=== PATIENT | female | born 1950 | race Hispanic/Latino ===

== ENCOUNTER 2024-09-04 23:33 | Emergency (ER) | payer SELFPAY ==
[~2024-09-04] VITALS: Ht 154.9 cm; Wt 89.8 kg
[2024-09-04 23:43] VITALS: TEMP 98.7
[2024-09-05] MEDS: TRAMADOL HCL 50 MG TAB PO ONE (01:25)
[2024-09-05] MEDS: ONDANSETRON HCL 4 MG ORAL DISINTEGRATING TAB PO ONE (01:25)
[2024-09-05] MEDS ORDERED: ONDANSETRON ODT4 MG SL (04:00)
[2024-09-05] MEDS ORDERED: ULTRAM 50MG50 MG PO (04:00)
[2024-09-05 04:54] VITALS: PULSE 68; RESP 16
[2024-09-05 05:01] VITALS: BP 125/67; O2SAT 98
== END 2024-09-05 05:00 | disposition home or self-care (01) ==
LOC: ER 23:49
DX: S52.591A Other fractures of lower end of right radius, initial encounter for closed fracture (principal); S50.11XA Contusion of right forearm, initial encounter; S80.01XA Contusion of right knee, initial encounter; W01.0XXA Fall on same level from slipping, tripping and stumbling without subsequent striking against object, initial encounter; Y93.01 Activity, walking, marching and hiking; Y92.89 Other specified places as the place of occurrence of the external cause; I10 Essential (primary) hypertension
CPT/HCPCS: 29125; 70450; 72125; 73090; 73110; 73502; 73562; 99284; Q0162